=== PATIENT | female | born 1995 | race Caucasian/White ===

== ENCOUNTER 2022-03-25 12:08 | Emergency (ER) | payer OTHER, SELFPAY ==
[2022-03-25 12:09] VITALS: BP 100/58; PULSE 147; RESP 16; TEMP 37; O2SAT 98
--- NOTE | 2022-03-25 13:19 | ED.RN ---
PT DECLINES CHEST PAIN PROTOCOL IN TRIAGE EXCEPT FOR EKG. HAS WITH HER
[2022-03-25 14:05] VITALS: BP 107/70; PULSE 140; RESP 20; O2SAT 98
--- NOTE | 2022-03-25 14:18 | EKG12_ITS ---
Test Reason : HIGH HR Blood Pressure : / mmHG Vent. Rate : 138 BPM Atrial Rate : 138 BPM P-R Int : 104 ms QRS Dur : 084 ms QT Int : 376 ms P-R-T Axes : 000 101 067 degrees QTc Int : 569 ms Sinus tachycardia with short AL Incomplete right bundle branch block Confirmed by EWELINA OLVERA, LUCAS ([id number]), newspaper or periodical editor JASON LACY ([id number]) on 03/27/2022 10:24:27 AM Referred By: DORINA Confirmed By:LUCAS THEODORE MD
--- NOTE | 2022-03-25 14:19 | EDS_ITS ---
HPI History of Present Illness Chief Complaint: Syncope Informant: patient Narrative Narrative: 26-year-old female presenting to the emergency room following a near syncopal episode. Patient states that she was at work when she suddenly developed lightheadedness. She states that she felt very flushed and globally weak. She denies any chest pain or palpitations. She notes that her heart rate is normally in the 80s to 90s but noticed that her heart rate is up to 160-130. She notes that she has had some nausea over the past day but nothing severe. She notes that she has had syncope in the past but not anything recent.. She has no known heart issues. No history of DVT or PE. Denies any back pain. PFSH PFSH Medical History no medical history no medical history Home Medications albuterol sulfate [Ventolin HFA] 2 puff INHALATION Q4H PRN PRN #1 inhaler 03/25/22 [Rx Last Taken Unknown] doxycycline monohydrate 100 mg PO BID #20 capsule 03/25/22 [Rx Last Taken Unknown] Allergy/AdvReac Type Severity Reaction Status Date / Time No Known Allergies Allergy Verified 03/25/22 12:11 Social History (Updated 03/25/22 @ 14:[address] Lincoln Jeong, DO) current gender identity: female Smoking Status: Never smoker ROS ROS ED Constitutional Constitutional ED: Denies chills or weight loss Eyes Eyes: Denies change in vision or diplopia ENT ENT ED: Denies ear pain, rhinorrhea or sore throat Cardiovascular Cardiovascular: Reports other Details: Near syncope ; Denies chest pain, orthopnea, palpitations or racing heartbeat Respiratory/Chest Respiratory/Chest: Denies cough, dyspnea or orthopnea Gastrointestinal Gastrointestinal: Reports nausea; Denies abdominal pain, diarrhea or vomiting Genitourinary Genitourinary ED: Denies dysuria, hematuria or urinary frequency Musculoskeletal Musculoskeletal: Denies arthralgias or myalgias Integumentary Denies abscess or rash Neurologic Neurologic: Denies headache(s) or weakness Psychiatric Psychiatric: Denies anxiety, depression, suicidal ideation or suicidal thoughts Endocrine Endocrinology: Denies polydipsia, polyphagia or polyuria Allergic/Immunologic Allergic/Immunologic ED: Denies mouth swelling, tongue swelling or urticaria EXAM Physical Exam Const Vital Signs: 03/25/22 12:09 03/25/22 14:05 03/25/22 14:06 Temperature 98.6 F Temperature Source Temporal Pulse Rate 147 H 140 H Respiratory Rate 16 20 H Respiratory Effort Normal Respiratory Pattern Normal Blood Pressure 100/58 L 107/70 Blood Pressure Mean 72 82 Pulse Ox 98 98 Oxygen Delivery Method Room Air Room Air 03/25/22 16:23 03/25/22 17:33 Temperature 100.6 F H Temperature Source Oral Pulse Rate 141 H Respiratory Rate 18 Respiratory Effort Respiratory Pattern Blood Pressure Blood Pressure Mean Pulse Ox 99 Oxygen Delivery Method Room Air Positive well nourished and well developed General Appearance ED: well developed HEENT Reports normocephalic, head/scalp atraumatic, TM's clear and moist mucous membranes Negative for trauma Tympanic Membrane ED: Yes TM's clear Eyes PERRL and EOMs intact bilaterally Neck no lymphadenopathy, supple and no JVD Resp normal respiratory effort and clear to auscultation bilaterally Cardio regular rate and no murmurs Rate: tachycardic GI normal to inspection, nondistended, normoactive bowel sounds and non-tender Palpation: soft Back/Spine no CVA tenderness and normal ROM Extremity normal to inspection General Extremety ED: Negative for edema General Extremity: Negative for edema Neuro oriented x3 and CN's II-XII intact bilaterally Sensorium / Orientation: alert Motor Exam: strength 5/5 throughout Psych mental status grossly normal Mood & Affect: Negative for depressed or tearful Skin no rashes or lesions noted and no wounds MDM MDM MDM Narrative Medical decision making narrative: Basic blood work was obtained which shows a white count of 13.4. D-dimer elevated 0.93. Troponin negative. Urine test is negative. My interpretation of the chest x-ray is left lower lobe infiltrate. The elevated D-dimer and her persistent tachycardia CTA of the chest was ordered which demonstrates a 3 x 2.5 cm lymph node in the left lower lung with associated infiltrate. Upon repeat examination the patient remains tachycardic and a repeat EKG continues to show sinus tachycardia. Patient appeared significantly more ruborous and her oral temperature was found to be 103.1. COVID and flu were obtained which were negative. She received Tylenol for the fever. Patient be discharged home with antibiotics and instructions to follow-up return if worsening or concerns Lab Data Attestation: I reviewed the patient's lab results. Labs: Laboratory Results - last 24 hr 03/25/22 03/25/2222 14:20 14:20 14:20 WBC 13.4 H RBC 4.79 Hgb 14.2 Hct 41.7 MCV 87.1 MCH 29.6 MCHC 34.1 RDW Std Deviation 40.7 RDW Coeff of Comfort 12.6 Plt Count 143 L MPV 10.4 Immature Gran % (Auto) 0.400 Neut % (Auto) 88.7 H Lymph % (Auto) 5.2 L Harding % (Auto) 5.6 Eos % (Auto) 0.0 Baso % (Auto) 0.1 Absolute Neuts (auto) 11.9 H Absolute Lymphs (auto) 0.69 L Nucleated RBC % 0 D-Dimer Quant (PE/DVT) 0.93 H* Sodium 135 L Potassium 4.4 Chloride 105 Carbon Dioxide 25.0 Anion Gap 5 BUN 9 Creatinine 0.73 Estim Creat Clear Calc 111.43 Est GFR (MDRD) Af Amer 122 Est GFR (MDRD) Non-Af 101 BUN/Creatinine Ratio 12.3 Glucose 106 Calcium 9.0 Magnesium 1.7 Total Bilirubin 1.10 H AST 42 H ALT 27 Alkaline Phosphatase 44 L Troponin I High Sens < 3 L Total Protein 8.1 Albumin 3.6 Globulin 4.5 H Albumin/Globulin Ratio 0.8 L TSH 0.42 Urine Test 03/25/22 14:24 WBC RBC Hgb Hct MCV MCH MCHC RDW Std Deviation RDW Coeff of Comfort Plt Count MPV Immature Gran % (Auto) Neut % (Auto) Lymph % (Auto) Hard[place] % (Auto) Eos % (Auto) Baso % (Auto) Absolute Neuts (auto) Absolute Lymphs (auto) Nucleated RBC % D-Dimer Quant (PE/DVT) Sodium Potassium Chloride Carbon Dioxide Anion Gap BUN Creatinine Estim Creat Clear Calc Est GFR (MDRD) Af Amer Est GFR (MDRD) Non-Af BUN/Creatinine Ratio Glucose Calcium Magnesium Total Bilirubin AST ALT Alkaline Phosphatase Troponin I High Sens Total Protein Albumin Globulin Albumin/Globulin Ratio TSH Urine Test Negative Radiography Diagnostic Testing: Clinical Impression(s) from Imaging Studies Chest X-Ray 03/25/22 14:20 IMPRESSION: Focal left lower lobe infiltrate. Electronically Signed: Jose Dumont MD at 15:23 EDT , Chest CTA 03/25/22 14:56 IMPRESSION: Enlarged 3 cm x 2.5 cm left infrahilar lymph node with volume loss/infiltrate in the anterior aspect of the left lower lobe. Electronically Signed: Jose Dumont MD at 15:43 EDT , EKG Initial EKG: Attestation: I personally reviewed and interpreted this EKG as follows: Comments: Sinus tachycardia with a ventricular rate of 138 bpm Follow-up EKG: Attestation: I personally reviewed and interpreted this EKG as follows: Comments: Sinus tachycardia with a ventricular rate of 139 bpm Discharge Plan Triage Chief Complaint: Syncope ED Provider: Lincoln Jeong Dx/Rx/DC Orders Clinical Impression: Pneumonia, Sinus tachycardia, Near syncope Instructions: ED Pneumonia (Adult), ED Near-Fainting, Uncertain Cause Prescriptions: New doxycycline monohydrate 100 MG capsule 100 mg PO BID Qty: 20 RF: 0 albuterol sulfate [Ventolin HFA] 1 INHALER inhaler 2 puff inhalation Q4H PRN PRN (Reason: Wheezing) Qty: 1 RF: 0 Primary Care Provider: Care Physician,No Primary Referrals: Callum Sosa MD [STAFF PHYSICIAN] - 1-2 Weeks Care Physician,No Primary [Primary Care Provider] - Disposition Disposition: Home, Self Care
--- NOTE | 2022-03-25 14:20 | RAD_ITS ---
STUDY: X-RAY CHEST REASON FOR EXAM: Female, 26 years old. NEAR SYNCOPE TECHNIQUE: Single AP portable view of the chest. COMPARISON: None. FINDINGS: EKG electrodes are seen. Focal infiltrate in the left lower lobe. There is no demonstrated pleural abnormality. Normal size heart. Normal mediastinum and tomasz. Normal visualized pulmonary arteries. Normal visualized aortic arch and descending thoracic aorta. Normal visualized thoracic spine. Normal visualized ribs, clavicles, and shoulders. There is no demonstrated abnormality of the visualized soft tissue structures of the upper abdomen. RAD/Chest 1 View (Portable) IMPRESSION: Focal left lower lobe infiltrate. Electronically Signed: Jose Dumont MD at 15:23 EDT ,
[2022-03-25 14:30] LABS: Absolute Lymphocyte Count 0.69 X10^3/uL (0.83-4.51); Absolute Neutrophil Count 11.9 X10^3/uL (2.0-7.7); Basophil# 0.02 X10^3/uL; Basophil% 0.1 % (0-1); Hematocrit 41.7 % (37-47); Hemoglobin 14.2 g/dL (12.0-15.0); Lymphocyte # 0.69 X10^3/ul (0.83-4.51); Lymphocyte % 5.2 % (19-41); Mean Corp Hgb Conc 34.1 g/dL (32-36); Mean Corpuscular Hgb 29.6 pg (27.0-32.0); Mean Corpuscular Volume 87.1 fL (81-99); Mean Platelet Vol. 10.4 fl (6.2-12.0); Monocyte# 0.75 X10^3/uL; Monocyte% 5.6 % (0-10); NRBC Flagged by Analyzer 0 % (0-5); Neutrophil # 11.87 X10^3/uL (2.7-7.7); Neutrophil % 88.7 % (47-70); POSITIVE COUNT YES; Platelet Count 143 K/mm3 (150-450); RBC Distribution Width CV 12.6 % (11.6-14.6); RBC Distribution Width SD 40.7 fl (35.1-43.9); Red Blood Count 4.79 M/mm3 (4.2-5.4); White Blood Count 13.4 K/mm3 (4.4-11.0)
[2022-03-25 14:34] LABS: Differential Indicated SCAN CRITERIA MET
[2022-03-25 14:42] LABS: Internal QC Validated? YES +Cl - CLEAR BKGD; Pregnancy, Urine Negative Negative
[2022-03-25 14:55] LABS: ALB/GLOB Ratio 0.8 RATIO (0.9-2.4); AST(SGOT) 42 U/L (15-37); Alanine Aminotransfer ALT/SGPT 27 U/L (13-56); Albumin, Serum 3.6 g/dL (3.2-5.0); Alkaline Phosphatase 44 U/L (45-117); Anion Gap 5 (5-15); BUN 9 mg/dL (7-18); BUN/Creat Ratio 12.3 RATIO (10-20); Chloride 105 mmol/L (98-107); Creatinine, Serum 0.73 mg/dL (0.55-1.02); EST Glomerular Filtration Rate 101 mL/min (>60); Est Glom Filt Rate - Afr Amer 122 mL/min (>60); Estimated Creatinine Clearance 111.43 ml/min; Globulin 4.5 g/dL (2.2-4.2); Glucose 106 mg/dL (74-106); Magnesium 1.7 mg/dL (1.6-2.6); Potassium 4.4 mmol/L (3.5-5.1); Protein, Total 8.1 g/dL (6.4-8.2); Sodium Level 135 mmol/L (136-145); Thyroid Stim Hormone (TSH) 0.42 uIU/mL (0.358-3.74); Troponin-I HS < 3 pg/mL (3.0-54.0)
[2022-03-25 14:56] LABS: D-Dimer Quantitative (DVT/PE) 0.93 FEU/ug/m (0.27-0.49)
--- NOTE | 2022-03-25 14:56 | CT_ITS ---
STUDY: CTA CHEST REASON FOR EXAM: Female, 26 years old. ELEVATED D DIMER PULMONARY EMBOLISM RADIATION DOSAGE (If Supplied By Facility): CTDIvol = ( 6.00 ) mGy, DLP = ( 164.17 ) mGycm TECHNIQUE: The examination was performed with the intravenous administration of IV 100mL Isovue-370. Post-processing of the angiographic images was performed, with multiplanar reformation and 3D reconstruction. Individualized dose optimization techniques were used for this CT. COMPARISON: None. FINDINGS: Normal enhancement of the main pulmonary artery and right and left pulmonary arteries. Normal enhancement of the bilateral peripheral pulmonary arteries. There is no demonstrated pulmonary embolism. Normal thoracic aorta and visualized great vessels. There is no demonstrated aortic dissection. Normal heart and pericardium. Normal mediastinum. Enlarged left infrahilar lymph node measuring 3 cm x 2.5 cm. Normal visualized trachea and bronchi. Focal infiltrate/volume loss in the anterior aspect of the left lower lobe. Normal pulmonary parenchyma. Normal pleura. Normal chest wall structures. Normal osseous structures. Normal visualized upper abdomen. CT/CTA Chest W/WO Contrast IMPRESSION: Enlarged 3 cm x 2.5 cm left infrahilar lymph node with volume loss/infiltrate in the anterior aspect of the left lower lobe. Electronically Signed: Jose Dumont MD at 15:43 EDT ,
--- NOTE | 2022-03-25 16:03 | CM.ED ---
Social Work Consult: No PCP Referral source: Self referral due to above. Met with patient in room. Introduced self and high school social studies teacher role. Patient agreeable to speak with this high school social studies teacher. This high school social studies teacher broached conversation about PCP. Patient confirms to not have a PCP. Patient states new to the area. Patient reports to originally be from [place] and to have moved to the area 3 years ago. Patient reports to see an TITLE ASSISTANT but not a primary yet. Patient open to this high school social studies teacher providing patient with list of PCP's that are in-network with patient insurance. Patient voicing plan to set up PCP. Patient denies any other concerns in the community. No further services requested or indicated. Asya HICKS, WINSTON-S
--- NOTE | 2022-03-25 16:20 | EKG12_ITS ---
Test Reason : REPEAT Blood Pressure : / mmHG Vent. Rate : 139 BPM Atrial Rate : 139 BPM P-R Int : 104 ms QRS Dur : 082 ms QT Int : 368 ms P-R-T Axes : 056 087 053 degrees QTc Int : 559 ms Sinus tachycardia with short RI Incomplete right bundle branch block Confirmed by EWELINA OLVERA, LUCAS ([id number]), supervising editor trailer JASON LACY ([id number]) on 03/27/2022 10:24:45 AM Referred By: Confirmed By:LUCAS THEODORE MD
[2022-03-25 16:23] VITALS: PULSE 141; RESP 18; O2SAT 99
[2022-03-25] MEDS: Acetaminophen 500 MG Tablet 1000 MG PO (16:44)
[2022-03-25 17:33] VITALS: TEMP 38.1
[2022-03-25 17:46] VITALS: BP 97/53; PULSE 140; RESP 18; O2SAT 95
== END 2022-03-25 17:47 | disposition home or self-care (01) ==
PROVIDERS: Emergency Provider Emergency Medicine; Visit Provider Emergency Medicine
DX: J18.9 Pneumonia, unspecified organism (principal); R00.0 Tachycardia, unspecified; R55 Syncope and collapse
CPT/HCPCS: 71045; 71275; 80053; 81025; 83735; 84443; 84484; 85025; 85379; 87428; 93005; 99285; Q9967; A4216

== ENCOUNTER 2022-07-21 10:59 | Day surgery (SDC) | payer OTHER, SELFPAY ==
[2022-07-21] VITALS (7 sets, daily range): BP systolic 91–152; BP diastolic 63–95; PULSE 66–81; RESP 16–18; TEMP 36.3–37; O2SAT 99–100; BMI 20.1
[2022-07-21] MEDS: Lactated Ringers 1,000 ML 15 ML IV (11:10)
[2022-07-21 11:21] LABS: Internal QC Validated? YES +Cl - CLEAR BKGD; Pregnancy, Urine Negative Negative
--- NOTE | 2022-07-21 11:42 | PCM.HP.BLA ---
History and Physical Date of Admission: 07/21/22 Patient is a 26-year-old female who presents for evaluation secondary to her recent CT scan. Since last visit, patient denies any ER visits, hospitalizations or prednisone burst.? Patient overall feels subjectively unchanged compared to previous. Overall, patient feels that she is doing well.? Patient has not had any new symptomatology.? Patient is not reporting any unintentional weight loss, fever, chills, diaphoresis or palpitations.? Patient has not had any hemoptysis, melena or hematochezia.? Patient is not reporting any rashes or joint pains.? No headaches have been reported.? Patient is not reporting any GERD type symptoms. CT scan was reviewed with gastroenterology.? There is some concern for possible GIST etiology.? Patient is supposed to have an upper endoscopy. Allergies No Known Allergies Allergy Medications NK? 07/15/22 [facility] Medical History? Loss of consciousness Surgical History? [place] teeth extracted Social History? Smoking Status:? Never smoker Exam Const Constitutional: Positive conversant, cooperative, in no acute respiratory distress, healthy appearing, well developed, well nourished, good hygiene and thin Head Head: Yes normocephalic, Yes atraumatic and No cyanosis of lips/distal nose Eyes Eye: Positive clear conjunctiva; Negative nystagmus Ears Ear: Positive hearing normal and external ears normal; Negative hard of hearing Nose Nose: Yes external nose normal Chest Wall Chest: Positive normal inspection of the chest and symmetric chest movement Resp lung sounds: Positive clear to auscultation, good air exchange and normal expiratory time; Negative wheezes, rhonchi, rales or use of accessory muscles Cardio Cardiac: Positive regular rate, regular rhythm, S1 normal and S2 normal; Negative murmur, rub or gallop Musc Musculoskeletal: Positive steady gait; Negative using an assistive device for ambulation, kyphosis or scoliosis Skin Pulmonary Skin Exam: Positive intact; Negative lesion, rash, ulcers or erythema Pulses Pulse: Yes radial pulses present Extremities Extremities: Yes capillary refill normal, No clubbing, No cyanosis and No edema Neuro Neurologic: Yes no focal neuro deficits, Yes conversant, Yes cooperative, Yes normal cognition, Yes normal coordination, Yes normal concentration and Yes understands questions Psych Appearance: Positive grossly normal, eye contact and well kempt Mental Status: Positive mental status grossly normal Mood: Positive anxious mood Affect: Positive tearful Assessment & Plan Assessment/Plan (1) Mass in chest: PLAN: She will undergo an upper endoscopy for evaluation of possible esophageal lesion. She was explained all contents, risk, benefits and doing that withstanding bleeding, infection, sepsis, perforation, need for emergent . Should have an ASA of 1.
--- NOTE | 2022-07-21 12:00 | EGD_PTH ---
PATIENT: MIRYAM GOMEZ LOC: EN U#:[id number] AGE/SX: 26/F ROOM: RE07/21/[address]: Dr. Hair Hannah DO : 1995 BED: DIS: 07/21/2022 SPEC #: [id number] RECD: 07/21/22 12:37 STATUS: ALYSON REQ #: [id number] ENA: 07/21/22 12:[address]: Hair Hannah DEPT: SURGICAL PATHOLOGY RECD BY: Melly Smith ENTERED: 07/22/22 11:16 SP TYPE: EGD BIOPSY OT DR: Geri Primary Care Phys Tissues: Esophagus, NOS Procedures: Special Stain Group II Surgery Specimen Level IV Alcian Blue/PAS (control) HEADER OPER[place] [place] DIAGNOSIS: Mass in chest TISSUE SUBMITTED: Distal esophagus biopsy MICROSCOPIC DIAGNOSIS Distal esophagus, biopsy: Gastroesophageal junctional mucosa with mild chronic inflammation. Focal changes of reflux. No evidence of goblet cell metaplasia. See comment. AM:cleopatra 07/23/2022 COMMENT Alcian blue/PAS stain with matched control supports the above diagnosis. MICROSCOPIC DESCRIPTION Slides are reviewed. GROSS DESCRIPTION Received in fixative is one container labeled with the patient's name and designated distal esophagus biopsy. The specimen consists of two irregular fragments of light hurley soft tissue that in aggregate measure 0.5 x 0.3 x 0.1 cm. The specimen is totally submitted in one cassette. / AM:cleopatra 07/22/2022 TC:3 CPT: 70140, 81546
--- NOTE | 2022-07-21 12:05 | OP.EGD_ITS ---
Patient Name: Shamika Garland Procedure Date: 07/21/2022 11:39 AM Date of : 1995 Age: 26 Procedure: Upper GI endoscopy Indications: Abnormal CT of the GI tract Providers: Hair Hannah DO Referring MD: Hair Hannah DO Medicines: Monitored Anesthesia Care Patient Profile: This is a 26 year old female. Refer to note in patient chart for documentation of history and physical. Patient has symptoms of chronic cough. 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 Complications: No immediate complications. Procedure: Pre-Anesthesia Assessment: - Prior to the procedure, a History and Physical was performed, and patient medications and allergies were reviewed. The risks and benefits of the procedure and the sedation options and risks were discussed with the patient. All questions were answered and informed consent was obtained. Patient identification and proposed procedure were verified by the physician in the pre-procedure area. Mental Status Examination: alert and oriented. Airway Examination: normal oropharyngeal airway and neck mobility. Respiratory Examination: clear to auscultation. CV Examination: normal. Prophylactic Antibiotics: The patient does not require prophylactic antibiotics. Prior Anticoagulants: The patient has taken no previous anticoagulant or antiplatelet agents. ASA Grade Assessment: II - A patient with mild systemic disease. After reviewing the risks and benefits, the patient was deemed in satisfactory condition to undergo the procedure. The anesthesia plan was to use moderate sedation / analgesia (conscious sedation). Immediately prior to administration of medications, the patient was re-assessed for adequacy to receive sedatives. The heart rate, respiratory rate, oxygen saturations, blood pressure, adequacy of pulmonary ventilation, and response to care were monitored throughout the procedure. The physical status of the patient was re-assessed after the procedure. After obtaining informed consent, the endoscope was passed under direct vision. Throughout the procedure, the patient's blood pressure, pulse, and oxygen saturations were monitored continuously. The Endoscope was introduced through the mouth, and advanced to the second part of duodenum. The upper GI endoscopy was accomplished without difficulty. The patient tolerated the procedure well. Scope In: 11:54:15 AM Scope Out: 11:57:43 AM Total Procedure Duration Time 0 hours 3 minutes 28 seconds Findings: The examined esophagus was normal. The Z-line was irregular and was found 38 cm from the incisors. Biopsies were taken with a cold forceps for histology. Verification of patient identification for the specimen was done. Estimated blood loss was minimal. A small hiatal hernia was present. The exam of the stomach was otherwise normal. The cardia and gastric fundus were normal on retroflexion. No gross lesions were noted in the first portion of the duodenum. Impression: - Normal esophagus. - Z-line irregular, 38 cm from the incisors. Biopsied. - Small hiatal hernia. - No gross lesions in the first portion of the duodenum. Recommendation: - Discharge patient to home. - Resume previous diet. - Continue present medications. - Await pathology results. Procedure Code(s): --- Professional --- 75631, Esophagogastroduodenoscopy, flexible, transoral; with biopsy, single or multiple CPT copyright 2017 [employer]. All rights reserved. The codes documented in this report are preliminary and upon irrigation equipment mechanic review may be revised to meet current compliance requirements. Hair Hannah DO 07/21/2022 12:05:27 PM This report has been signed electronically. Number of Addenda: 1 Note Initiated On: 07/21/2022 11:39 AM Addendum Number: 1 Addendum Date: 09/03/2022 6:07:56 AM MAC was used as sedation for this procedure. Hair Hannah DO 09/03/2022 6:07:59 AM This report has been signed electronically.
--- NOTE | 2022-07-21 12:06 | OP.CCLET_ITS ---
09/03/2022 No Primary Care Physician Re : Upper GI endoscopy procedure for Shamika Garland Dear Care Physician This procedure was performed on Thursday, July 21, 2022. My impressions and recommendations are as follows: Impressions : - Normal esophagus. - Z-line irregular, 38 cm from the incisors. Biopsied. - Small hiatal hernia. - No gross lesions in the first portion of the duodenum. Recommendations : - Discharge patient to home. - Resume previous diet. - Continue present medications. - Await pathology results. My findings are described in the full procedure note, which is enclosed. If I can be of further assistance, please feel free to contact me at . Sincerely, Hair Hannah, 07/21/2022 12:05:27 PM This report has been signed electronically.
== END 2022-07-21 12:59 | disposition home or self-care (01) ==
LOC: EN 11:02 → AC 11:02
PROVIDERS: Anesthesiology; Visit Provider Internal Medicine Gastroenterology
PROC: 0DJ08ZZ Inspection of Upper Intestinal Tract, Via Natural or Artificial Opening Endoscopic (ICD-10-PCS; CPT 43235; principal; 2022-07-21 11:55)
DX: K44.9 Diaphragmatic hernia without obstruction or gangrene (principal); K20.90 Esophagitis, unspecified without bleeding
CPT/HCPCS: 43239; 81025; 88305; 88313; J7120